=== PATIENT | male | born 1985 | race Asian ===

== ENCOUNTER 2018-02-21 13:19 | Emergency (ER) | payer OTHER ==
[~2018-02-21] VITALS: Ht 182.9 cm; Wt 81.6 kg
[2018-02-21 14:37] LABS: PLATELET COUNT 327 K/uL (142-355)
[2018-02-21 14:46] LABS: POTASSIUM 3.9 mmol/L (3.6-5.2)
[2018-02-21 16:15] VITALS: BP 146/72; TEMP 97.7
== END 2018-02-21 16:15 | disposition home or self-care (01) ==
LOC: ED 13:19
PROVIDERS: Family Medicine
DX: R41.82 Altered mental status, unspecified (principal)
CPT/HCPCS: 36415; 80048; 85027; 96374; 99284; J2060

== ENCOUNTER 2019-02-06 10:15 | Outpatient (CLI) | payer OTHER | END 2019-02-06 10:19 | disposition short-term general hospital (02) | LOC: AMB 10:15 | DX: F32.89 Other specified depressive episodes (principal); R45.851 Suicidal ideations | CPT/HCPCS: A0425; A0429 ==

== ENCOUNTER 2019-02-06 10:23 | Emergency (ER) | payer OTHER ==
[~2019-02-06] VITALS: Ht 182.9 cm; Wt 81.6 kg
[2019-02-06 10:54] LABS: PLATELET COUNT 332 K/uL (142-355)
[2019-02-06 11:06] LABS: POTASSIUM 3.6 mmol/L (3.6-5.2); SODIUM 139 mmol/L (136-145)
[2019-02-06 11:31] LABS: PARTIAL THROMBOPLASTIN TIME 23.4 SECONDS (24.5-33.6)
[2019-02-09 15:00] VITALS: BP 129/76; TEMP 98.2
== END 2019-02-09 15:00 | disposition other institution (70) ==
LOC: ED 10:23
PROVIDERS: Family Medicine
DX: R45.851 Suicidal ideations (principal)
CPT/HCPCS: 36415; 80053; 80307; 80320; 80329; 81000; 82550; 82553; 83880; 84443; 84484; 85027; 85610; 85730; 93005; 96372; 99285; J1630; J2060